=== PATIENT | female | born 1995 | race Caucasian/White ===

== ENCOUNTER 2017-03-30 22:29 | Emergency (ER) | payer OTHER ==
[~2017-03-30] VITALS: Ht 157.5 cm; Wt 62.7 kg
[2017-03-30 22:41] VITALS: BP 121/81; PULSE 71; RESP 18; O2SAT 100
[2017-03-31] MEDS ORDERED: Triamcinolone 0.1% 30 Gm Cream TOPICAL ONE (01:00)
--- NOTE | 2017-03-31 01:02 | ED.REPORT ---
HPI-Rash / Abscess Date of Service Mar 31, 2017 ED Provider: Trev Corral MD The patient is a healthy 21 year old female who presents to the ED with multiple bug bites to her abdomen onset this afternoon. The bites are red and itchy. The patient is unsure of what may have bit her and denies spending time outside recently. She also denies tongue swelling, throat itching, shortness of breath, or other symptoms. Nursing Notes Stated Complaint: RASH Chief Complaint: Allergic Reaction Nursing Notes Reviewed: Yes Allergies: Coded Allergies: No Known Allergies (Verified Allergy, Unknown, 03/30/17) General Time Seen by MD: 00:39 Chief Complaint Other (Bug Bites) Hx Obtained From: Patient Arrived By: Walk-in Onset Occurred: 5 - 8 hours ago Symptom Duration: Since onset Location: : Abdomen Quality: Itching Severity: Current: Moderate Severity: Maximum: Moderate Pertinent Negative: Relieved by nothing Recent Healthcare: No recent doctor visit Past Medical History Past Medical History None reported Past Surgical History wisdom teeth, bunion and ear tubes Smoking History Never Smoker Social History Alcohol Use: "Social" Drug Use: THC Other Social History: Good social support Occupation lives with parents, single Ambulatory Status Independent Review of Systems Review of Systems Note: + Multiple red bug bites to abdomen - Throat itching Constitutional: Denies: Fever Ears / Nose / Throat: Denies: Tongue swelling Respiratory: Denies: Non-productive cough, Shortness of breath GI: Denies: Diarrhea, Vomiting Skin: Reports Itching (Abdomen) Complete sys rev & neg: except as marked. Physical Exam Initial Vital Signs Vital Signs (First) Date Time Temp Pulse Resp B/P Pulse Ox O2 Delivery O2 Flow Rate FiO2 03/30/17 22:41 36.8 71 18 121/81 100 Room Air Initial VS: Reviewed, Vital signs normal Head / Eyes: Atraumatic, Normocephalic Neck: Supple, Full range of motion Respiratory: Breath sounds normal, Clear to auscultation, No respiratory distress Cardiovascular: Regular rate & rhythm, Heart sounds normal Neurologic: Alert, Oriented, Nonfocal Psychiatric: Mood/affect normal, Behavior normal, Normal thought content General/Constitutional: Awake, Alert, No acute distress Skin: Warm, Dry Rash / Lesion Notes: Multiple non-confluent maculopapular lesions consistent with insect bites present on abdomen ENT: Airway patent, Mucous membranes moist, Pharynx NL, No facial swelling Re-Eval/Medical Decision Med Decision/Clinical Course Uncomplicated local reaction to insect bites. Triamcinolone cream was dispensed. I went over the instructions and my diagnosis with the patient but she left prior to receiving the written copy. Source of Hx: Old records Re-Evaluation/Progress #1: Time of Eval: 01:00 Patient Status: Condition improved Re-Evaluation/Progress Note: Discussed with patient physical exam findings, diagnosis, and plan for discharge. Follow-up and return to the ER instructions given. Patient agrees with plan for care and all questions were addressed. Re-Evaluation/Progress #2: Time of Eval: 01:10 Patient Status: Condition improved Re-Evaluation/Progress Note: Patient left without written instructions. Counseled Regarding: Diagnosis, Need for follow-up, When/why to return to ED Discharge & Departure Impression: Primary Impression: Nonvenomous insect bite of abdominal wall without infection Encounter type: initial encounter Qualified Code: S30.861A - Insect bite ( nonvenomous) of abdominal wall, initial encounter Disposition: Home Discharge Condition All VS Reviewed: Yes Condition: Improved Patient Instructions: Insect Bite or Sting (ED) Additional Instructions: These appear to be a noninfected insect bites. I have no way of telling what insect, but mosquitoes, spiders, fleas and bedbugs are the common ones. Triamcinolone cream will reduce the redness swelling and itching. Follow-up if there is any evidence of infection. Referrals: José Manuel Cotter MD (PCP) [facility] Portions of this note were transcribed by Glenys Woodruff. I, Dr. Corral, personally performed the history, physical exam, and medical decision-making; I reviewed and confirmed the accuracy of the information in the transcribed note. Signed by: Angel Borrego, 03/31/2017, 03:25 copies to: José Manuel Cotter MD, Howard L MD Mar 31, 2017 01:02 GLENYS WOODRUFF Mar 31, 2017 01:57
== END 2017-03-31 01:14 | disposition home or self-care (01) ==
LOC: SED 22:29
DX: S30.861A Insect bite (nonvenomous) of abdominal wall, initial encounter (principal); W57.XXXA Bitten or stung by nonvenomous insect and other nonvenomous arthropods, initial encounter; Y93.89 Activity, other specified; Y99.8 Other external cause status; Y92.9 Unspecified place or not applicable; F12.10 Cannabis abuse, uncomplicated; Z79.3 Long term (current) use of hormonal contraceptives